=== PATIENT | male | born 1985 | race Two or more races ===

== ENCOUNTER 2020-10-18 14:16 | Emergency (ER) | payer MEDICAID, OTHER ==
[~2020-10-18] VITALS: Ht 190.5 cm; Wt 86.2 kg
[2020-10-18] MEDS ORDERED: IBUPROFEN 600 MG TAB PO ONE ×2 (14:55→15:00)
[2020-10-18] MEDS ORDERED: ACETAMINOPHEN 500 MG TAB PO ONE (16:45)
[2020-10-18 16:58] VITALS: BP 122/70
== END 2020-10-18 17:07 | disposition home or self-care (01) ==
LOC: ER 14:16
DX: S83.92XA Sprain of unspecified site of left knee, initial encounter (principal); M25.462 Effusion, left knee; F17.210 Nicotine dependence, cigarettes, uncomplicated; W18.00XA Striking against unspecified object with subsequent fall, initial encounter; Y93.89 Activity, other specified; Y92.89 Other specified places as the place of occurrence of the external cause; Y99.8 Other external cause status
CPT/HCPCS: 73562